=== PATIENT | male | born 1955 | race Caucasian/White ===

== ENCOUNTER 2017-11-05 15:54 | Observation (INO) ==
[2017-11-05 16:52] LABS: Basophils # 0.1 K/mcL (0.0-0.2); Basophils % 0.3 %; Eosinophils % 0.2 %; Hematocrit 47.3 % (37.5-50.1); Hemoglobin 15.4 g/dL (12.9-16.9); Immature Granulocytes % 0.8 % (0-4); Lymphocytes # 1.6 K/mcL (0.6-4.6); Lymphocytes % 10.5 %; Mean Corpuscular HGB Conc 32.6 g/dL (31.6-35.5); Mean Corpuscular Hemoglobin 29.6 pg (28.0-33.3); Monocytes # 0.9 K/mcL (0.0-1.3); Monocytes % 5.8 %; Neutrophils # 12.5 K/mcL (1.6-8.9); Platelet Count 284 K/mcL (140-400); Red Cell Distribution Width 14.6 % (11.5-14.5); Segmented Neutrophils % 82.4 %
[2017-11-05 17:09] LABS: BUN/Creatinine Ratio 25 (6-26); Blood Urea Nitrogen 22 mg/dL (8-23); Calcium 10.1 mg/dL (8.6-10.3); Carbon Dioxide 27 mEq/L (23-29); Chloride 97 mEq/L (98-107); Glucose 249 mg/dL (70-105); Osmolality,Calculated 288 (280-300); Potassium 5.6 mEq/L (3.5-5.1); Sodium 133 mEq/L (136-145); Troponin I < 0.03 ng/mL (< 0.04); eGFR For African Americans > 60 (> 60); eGFR For Non-African Americans > 60 (> 60)
[2017-11-05] MEDS ORDERED: Aspirin 325 MG TABLET PO ONE (20:01)
--- NOTE | 2017-11-05 20:03 | Emergency Department Note ---
Disposition Clinical Impression: Chest pain Qualifiers: Chest pain type: unspecified Qualified Code(s): R07.9 - Chest pain, unspecified Disposition: Admitted As Inpatient Condition: Good Referrals: Latrell Smith MD [Primary Care Provider] - Forms: ED Satisfaction Letter Time of Disposition: 21:08 General Adult HPI - General Chief complaint: ED Chest Pain Stated complaint: chest Pain Time Seen by Provider: 11/05/17 17:17 Source: patient Mode of arrival: ambulatory Limitations: no limitations Nursing Notes Reviewed: Yes Vital Signs Reviewed: Yes - History of Present Illness Pain Scale: 6 - Related Data Home Medications Medication Instructions Recorded Confirmed ALPRAZolam [Xanax 1 MG Tablet] 1 mg PO TID PRN 04/22/15 11/05/17 Albuterol Sulfate [Proair HFA] 2 puff IH Q4-6H PRN 04/22/15 11/05/17 Ergocalciferol (VITAMIN D2) 50,000 unit PO TUTH 04/22/15 11/05/17 [Drisdol] Levothyroxine [Synthroid] 75 mcg PO QAM 04/22/15 11/05/17 Oxycodone HCl/Acetaminophen 1 tab PO QID 04/22/15 11/05/17 [Percocet 10-325 mg Tablet] Oxygen 2 l NS AD 04/22/15 11/05/17 Potassium Chloride [K-Tab ER] 20 meq PO BID 11/17/15 11/05/17 Empagliflozin [Jardiance] 10 mg PO DAILY 06/25/17 11/05/17 ALPRAZolam [Xanax 1 MG Tablet] 2 mg PO HS 11/05/17 11/05/17 Aspirin Enteric Coated [Aspirin EC] 81 mg PO DAILY 11/05/17 11/05/17 Atorvastatin Calcium [Lipitor] 80 mg PO HS 11/05/17 11/05/17 Budesonide/Formoterol 160/4.5 2 puff IH BIDR 11/05/17 11/05/17 [Symbicort 160/4.5] Bumetanide 0.5 mg PO DAILY 11/05/17 11/05/17 Cetirizine HCl [Zyrtec] 10 mg PO DAILY PRN 11/05/17 11/05/17 Lisinopril [Zestril] 40 mg PO DAILY 11/05/17 11/05/17 Sitagliptin Phos/Metformin HCl 1 each PO BID 11/05/17 11/05/17 [Janumet Xr 50-1,000 mg Tablet] Subcutaneous Insulin Pump [T:Slim] 1 each MC AD 11/05/17 11/05/17 Allergies Allergy/AdvReac Type Severity Reaction Status Date / Time venom-honey bee Allergy Unknown SOB, Verified 11/05/17 15:59 [bee venom (honey bee)] swelling metformin AdvReac Unknown Loss of Verified 11/05/17 15:59 bowel control Past Medical History - Past Medical History Medical history: Reports: COPD, diabetes, hyperlipidemia, hypertension, myocardial infarction, thyroid disease Surgical history: Reports: orthopedic, other Psychiatric history: Reports: anxiety, depression - Social History Smoking Status: Never smoker Smokeless Tobacco Status: No Alcohol use: Reports: none Drug use: Reports: none Physical Exam - General Limitations: no limitations General appearance: alert, in no apparent distress Course Vital Signs Temperature 98.3 F 11/05/17 15:56 Pulse Rate 106 11/05/17 15:56 Respiratory Rate 20 11/05/17 15:56 Blood Pressure 175/97 11/05/17 15:56 O2 Sat by Pulse Oximetry 94 11/05/17 15:56 Temperature 98.3 F 11/05/17 15:56 Pulse Rate 82 11/05/17 20:46 Respiratory Rate 18 11/05/17 20:46 Blood Pressure 116/67 11/05/17 20:46 O2 Sat by Pulse Oximetry 98 11/05/17 20:46 Oxygen Delivery Oxygen Delivery Room Air Medical Decision Making - Lab Data Result diagrams: 11/05/17 15:55 11/05/17 15:55 Lab Results 11/05/17 11/05/17 11/05/17 Range/Units 15:55 15:55 15:55 WBC 15.2 H (4.3-11.1) K/mcL RBC 5.20 (4.19-5.50) M/mcL Hgb 15.4 (12.9-16.9) g/dL Hct 47.3 (37.5-50.1) % MCV 91.0 (83.0-100.0) fL MCH 29.6 (28.0-33.3) pg MCHC 32.6 (31.6-35.5) g/dL RDW 14.6 H (11.5-14.5) % Plt Count 284 (140-400) K/mcL MPV 11.0 (9.4-12.4) fL Immature Gran % 0.8 (0-4) % Seg Neutrophils % 82.4 % Lymphocytes % 10.5 % Monocytes % 5.8 % Eosinophils % 0.2 % Basophils % 0.3 % Neutrophils # 12.5 H (1.6-8.9) K/mcL Lymphocytes # 1.6 (0.6-4.6) K/mcL Monocytes # 0.9 (0.0-1.3) K/mcL Eosinophils # 0.0 (0.0-0.6) K/mcL Basophils # 0.1 (0.0-0.2) K/mcL PT (9.4-12.1) Seconds INR APTT (26.0-36.0) Seconds D-Dimer (0-500) ng/mLFEU Sodium 133 L (136-145) mEq/L Potassium 5.6 H (3.5-5.1) mEq/L Chloride 97 L (98-107) mEq/L Carbon Dioxide 27 (23-29) mEq/L BUN 22 (8-23) mg/dL Creatinine 0.87 (0.70-1.30) mg/dL Est GFR ( Amer) > 60 (> 60) Est GFR (Non-Af Amer) > 60 (> 60) BUN/Creatinine Ratio 25 (6-26) Glucose 249 H (70-105) mg/dL Calculated Osmolality 288 (280-300) Calcium 10.1 (8.6-10.3) mg/dL Troponin I < 0.03 (< 0.04) ng/mL B-Natriuretic Peptide 13 (Less than 100) pg/mL 11/05/17 11/05/17 Range/Units 18:51 20:12 WBC (4.3-11.1) K/mcL RBC (4.19-5.50) M/mcL Hgb (12.9-16.9) g/dL Hct (37.5-50.1) % MCV (83.0-100.0) fL MCH (28.0-33.3) pg MCHC (31.6-35.5) g/dL RDW (11.5-14.5) % Plt Count (140-400) K/mcL MPV (9.4-12.4) fL Immature Gran % (0-4) % Seg Neutrophils % % Lymphocytes % % Monocytes % % Eosinophils % % Basophils % % Neutrophils # (1.6-8.9) K/mcL Lymphocytes # (0.6-4.6) K/mcL Monocytes # (0.0-1.3) K/mcL Eosinophils # (0.0-0.6) K/mcL Basophils # (0.0-0.2) K/mcL PT 11.5 (9.4-12.1) Seconds INR 1.1 APTT 31.9 (26.0-36.0) Seconds D-Dimer 238 (0-500) ng/mLFEU Sodium (136-145) mEq/L Potassium (3.5-5.1) mEq/L Chloride (98-107) mEq/L Carbon Dioxide (23-29) mEq/L BUN (8-23) mg/dL Creatinine (0.70-1.30) mg/dL Est GFR ( Amer) (> 60) Est GFR (Non-Af Amer) (> 60) BUN/Creatinine Ratio (6-26) Glucose (70-105) mg/dL Calculated Osmolality (280-300) Calcium (8.6-10.3) mg/dL Troponin I (< 0.04) ng/mL B-Natriuretic Peptide (Less than 100) pg/mL Attestation Statement - Attestation Attestation: I, Rob De Luna DO, examined this patient [id number] and my medical decision-making was reviewed with Christophe Olson PGY-1, Resident Physician. I agree with the documented findings, disposition and treatment plan as described except to the extent set forth below. Please see my progress notes for details. 62-year-old male presents to the emergency room at 2 days with a substernal chest pain that comes and goes. Symptoms are worse with exertion. Denies any cardiac history at this time from what he knows. Patient denies any history of other symptoms. Currently denying chest pain shortness of breath headache vision changes nausea vomiting or diarrhea. Denies any fevers or chills. Patient has not had any trauma or injury. He does not take any new medications. Physical exam shows a well-appearing male in no apparent distress. He does have truncal obesity and does have a big abdomen. Denies any other specific medical history at this point. Patient will have screening EKG chest x-ray CBC chemistry troponin and BNP and d-dimer considering he was tachycardic initially. Patient's EKG does not show any acute signs of ST segment elevation abnormality or signs of myocardial infarction. This was reviewed and compared to an EKG collected on 10/25/17. Patient understands that her concern is for cardiac ischemia with no history of echocardiogram or stress test. Patient also understands will probably be recommending admission. He otherwise has no complaints or symptoms at this time. Patient is resting comfortable. See detailed documentation of the physical exam, medical intervention, medical decision-making and disposition in the resident physician' s note. No critical care applied to this patient's treatment course at this time. 2034 Patient is been stable here. Patient was discussed with the hospitals. Admission process will be completed. Patient is symptom-free at this time. No intervention required. Aspirin was given here in the emergency room.
--- NOTE | 2017-11-05 20:07 | Emergency Department Note ---
Disposition Clinical Impression: Chest pain Qualifiers: Chest pain type: unspecified Qualified Code(s): R07.9 - Chest pain, unspecified Disposition: Admitted As Inpatient Condition: Good Referrals: Latrell Smith MD [Primary Care Provider] - Forms: ED Satisfaction Letter Time of Disposition: 20:46 Chest Pain HPI - General Chief Complaint: ED Chest Pain Stated Complaint: chest Pain Time Seen by Provider: 11/05/17 17:17 Source: patient Mode of arrival: ambulatory Limitations: no limitations Vital Signs Reviewed: Yes Nursing Notes Reviewed: Yes - History of Present Illness HPI Narrative: Mr. Cesar Shaver is a 62 year old male who presents with 2 days of intermittent substernal chest pain radiating to the back. He says the chest pain is worse with exertion. He states he currently does not have chest pain, denies history of VA, has had LHC in past without stent placement. He denies fever/nausea/vomiting/diaphoresis. Severity scale (1-10): 6 - Related Data Home Medications Medication Instructions Recorded Confirmed ALPRAZolam [Xanax 1 MG Tablet] 1 mg PO TID PRN 04/22/15 11/05/17 Albuterol Sulfate [Proair HFA] 2 puff IH Q4-6H PRN 04/22/15 11/05/17 Ergocalciferol (VITAMIN D2) 50,000 unit PO TUTH 04/22/15 11/05/17 [Drisdol] Levothyroxine [Synthroid] 75 mcg PO QAM 04/22/15 11/05/17 Oxycodone HCl/Acetaminophen 1 tab PO QID 04/22/15 11/05/17 [Percocet 10-325 mg Tablet] Oxygen 2 l NS AD 04/22/15 11/05/17 Potassium Chloride [K-Tab ER] 20 meq PO BID 11/17/15 11/05/17 Empagliflozin [Jardiance] 10 mg PO DAILY 06/25/17 11/05/17 ALPRAZolam [Xanax 1 MG Tablet] 2 mg PO HS 11/05/17 11/05/17 Aspirin Enteric Coated [Aspirin EC] 81 mg PO DAILY 11/05/17 11/05/17 Atorvastatin Calcium [Lipitor] 80 mg PO HS 11/05/17 11/05/17 Budesonide/Formoterol 160/4.5 2 puff IH BIDR 11/05/17 11/05/17 [Symbicort 160/4.5] Bumetanide 0.5 mg PO DAILY 11/05/17 11/05/17 Cetirizine HCl [Zyrtec] 10 mg PO DAILY PRN 11/05/17 11/05/17 Lisinopril [Zestril] 40 mg PO DAILY 11/05/17 11/05/17 Sitagliptin Phos/Metformin HCl 1 each PO BID 11/05/17 11/05/17 [Janumet Xr 50-1,000 mg Tablet] Subcutaneous Insulin Pump [T:Slim] 1 each MC AD 11/05/17 11/05/17 Allergies Allergy/AdvReac Type Severity Reaction Status Date / Time venom-honey bee Allergy Unknown SOB, Verified 11/05/17 15:59 [bee venom (honey bee)] swelling metformin AdvReac Unknown Loss of Verified 11/05/17 15:59 bowel control Constitutional: Denies: fever, chills Eyes: Denies: vision change Cardiovascular: Reports: dyspnea on exertion Respiratory: Reports: wheezes. Denies: cough Gastrointestinal: Denies: abdominal pain Musculoskeletal: Denies: back pain Neurological: Denies: headache Psychiatric: Denies: anxiety, depression Endocrine: Denies: fatigue Chest Pain PMH - Past Medical History Medical history: Reports: COPD, diabetes, hyperlipidemia, hypertension, myocardial infarction, thyroid disease Surgical history: Reports: orthopedic, other Psychiatric history: Reports: anxiety, depression - Social History Smoking Status: Never smoker Alcohol use: Reports: none Drug use: Reports: none Physical Exam - General Limitations: no limitations General appearance: alert, in no apparent distress - Head Head exam: atraumatic, normocephalic - Eye Eye exam: Present: EOMI - ENT ENT exam: mucous membranes moist - Neck Neck exam: Present: full ROM - Chest Chest inspection: Present: symmetric chest wall rise - Respiratory Respiratory exam: Present: other (distant breath sounds bilaterally). Absent: respiratory distress - Cardiovascular Cardiovascular exam: Present: regular rate, normal rhythm. Absent: systolic murmur, diastolic murmur, rubs, gallop, JVD - Abdominal Exam Abdominal exam: Present: soft, Non-Tender, other (central obesity). Absent: distention - Extremities Exam Extremities exam: Present: normal capillary refill. Absent: pedal edema, joint swelling - Neurological Exam Neurological exam: Present: alert, oriented X3 - Psychiatric Psychiatric exam: Present: normal affect, normal mood - Skin Skin exam: Present: warm. Absent: cyanosis, diaphoresis, pallor Course Course Narrative: Patient is non-diaphoretic, currently denies chest pain that he previously had. He is saturating at his baseline low 90s. He has a negative troponin, CXR shows no acute cardiopulmonary process, ECG shows no ischemic changes, d-dimer is negative. Despite negative lab work today, his ASCVD 10 is 33%, Heart score of 4 for history and risk factors (DM, HTN, Cholesterol). Gave patient ASA 325mg. Discussed patient's workup with admitting hospitialist who agrees to evaluate patient for ACS. Patient agrees with plan for admission. Vital Signs Temperature 98.3 F 11/05/17 15:56 Pulse Rate 106 11/05/17 15:56 Respiratory Rate 20 11/05/17 15:56 Blood Pressure 175/97 11/05/17 15:56 O2 Sat by Pulse Oximetry 94 11/05/17 15:56 Temperature 98.3 F 11/05/17 15:56 Pulse Rate 82 11/05/17 20:46 Respiratory Rate 18 11/05/17 20:46 Blood Pressure 116/67 11/05/17 20:46 O2 Sat by Pulse Oximetry 98 11/05/17 20:46 Oxygen Delivery Oxygen Delivery Room Air Chest Pain - Medical Records Medical records reviewed: Yes I reviewed the patient's medical records. - Lab Data Lab results reviewed: Yes I reviewed the patient's lab results. Result diagrams: 11/05/17 15:55 11/05/17 15:55 Lab Results 11/05/17 11/05/17 11/05/17 Range/Units 15:55 15:55 15:55 WBC 15.2 H (4.3-11.1) K/mcL RBC 5.20 (4.19-5.50) M/mcL Hgb 15.4 (12.9-16.9) g/dL Hct 47.3 (37.5-50.1) % MCV 91.0 (83.0-100.0) fL MCH 29.6 (28.0-33.3) pg MCHC 32.6 (31.6-35.5) g/dL RDW 14.6 H (11.5-14.5) % Plt Count 284 (140-400) K/mcL MPV 11.0 (9.4-12.4) fL Immature Gran % 0.8 (0-4) % Seg Neutrophils % 82.4 % Lymphocytes % 10.5 % Monocytes % 5.8 % Eosinophils % 0.2 % Basophils % 0.3 % Neutrophils # 12.5 H (1.6-8.9) K/mcL Lymphocytes # 1.6 (0.6-4.6) K/mcL Monocytes # 0.9 (0.0-1.3) K/mcL Eosinophils # 0.0 (0.0-0.6) K/mcL Basophils # 0.1 (0.0-0.2) K/mcL PT (9.4-12.1) Seconds INR APTT (26.0-36.0) Seconds D-Dimer (0-500) ng/mLFEU Sodium 133 L (136-145) mEq/L Potassium 5.6 H (3.5-5.1) mEq/L Chloride 97 L (98-107) mEq/L Carbon Dioxide 27 (23-29) mEq/L BUN 22 (8-23) mg/dL Creatinine 0.87 (0.70-1.30) mg/dL Est GFR ( Amer) > 60 (> 60) Est GFR (Non-Af Amer) > 60 (> 60) BUN/Creatinine Ratio 25 (6-26) Glucose 249 H (70-105) mg/dL Calculated Osmolality 288 (280-300) Calcium 10.1 (8.6-10.3) mg/dL Troponin I < 0.03 (< 0.04) ng/mL B-Natriuretic Peptide 13 (Less than 100) pg/mL 11/05/17 11/05/17 Range/Units 18:51 20:12 WBC (4.3-11.1) K/mcL RBC (4.19-5.50) M/mcL Hgb (12.9-16.9) g/dL Hct (37.5-50.1) % MCV (83.0-100.0) fL MCH (28.0-33.3) pg MCHC (31.6-35.5) g/dL RDW (11.5-14.5) % Plt Count (140-400) K/mcL MPV (9.4-12.4) fL Immature Gran % (0-4) % Seg Neutrophils % % Lymphocytes % % Monocytes % % Eosinophils % % Basophils % % Neutrophils # (1.6-8.9) K/mcL Lymphocytes # (0.6-4.6) K/mcL Monocytes # (0.0-1.3) K/mcL Eosinophils # (0.0-0.6) K/mcL Basophils # (0.0-0.2) K/mcL PT 11.5 (9.4-12.1) Seconds INR 1.1 APTT 31.9 (26.0-36.0) Seconds D-Dimer 238 (0-500) ng/mLFEU Sodium (136-145) mEq/L Potassium (3.5-5.1) mEq/L Chloride (98-107) mEq/L Carbon Dioxide (23-29) mEq/L BUN (8-23) mg/dL Creatinine (0.70-1.30) mg/dL Est GFR ( Amer) (> 60) Est GFR (Non-Af Amer) (> 60) BUN/Creatinine Ratio (6-26) Glucose (70-105) mg/dL Calculated Osmolality (280-300) Calcium (8.6-10.3) mg/dL Troponin I (< 0.04) ng/mL B-Natriuretic Peptide (Less than 100) pg/mL - Radiology Data Radiology results reviewed: Yes I reviewed the patient's radiology results. Chest X-Ray 11/05/17 15:55 IMPRESSION: No acute cardiopulmonary process identified. D/ / Israel Sanchez MD / Israel Sanchez MD Interpreting Provider: Israel Sanchez MD - EKG Data EKG attestation: Yes I reviewed and interpreted this EKG. EKG results narrative: ECG obtained 1558, HR tachycardic at 106, normal axis, no st ischemic changes, normal r wave progression. Attestation Statement - Attestation Attestation: I, Rob De Luna DO, examined this patient [id number] and my medical decision-making was reviewed with Christophe Olson PGY-1, Resident Physician. I agree with the documented findings, disposition and treatment plan as described except to the extent set forth below. Please see my progress notes for details.
[2017-11-05 20:27] LABS: INR 1.1; Prothrombin Time 11.5 Seconds (9.4-12.1)
[2017-11-05 20:29] LABS: Activated Partial Thrombo Time 31.9 Seconds (26.0-36.0)
[2017-11-05] MEDS ORDERED: Acetaminophen 325 MG TABLET PO PRN (21:47)
[2017-11-05] MEDS ORDERED: Naloxone 0.4 MG/ML INJ IVP PRN (21:47)
[2017-11-05] MEDS ORDERED: ALPRAZolam 1 MG TABLET PO PRN (21:48)
[2017-11-05] MEDS ORDERED: Ipratropium/Albuterol Neb 3 ML IH PRN (21:54)
--- NOTE | 2017-11-05 22:00 | Internal Med History&Physical ---
Date of Encounter: 11/05/17 Time of Encounter: 21:58 Assessment and Plan (1) Chest pain Current visit: Yes Status: Acute Intermittent, progressive. EKG reviewed independently-sinus tachycardia at 106 bpm. Continue telemetry monitoring, trend troponins. Nuclear stress test in a.m. Echocardiogram in 2016 showed preserved ejection fraction, mild left ventricular diastolic dysfunction, Mild to moderately dilated left atrium. Continue aspirin and statin. Check lipid profile. Qualifiers: Chest pain type: unspecified Qualified Code(s): R07.9 - Chest pain, unspecified (2) Hyperkalemia Current visit: Yes Status: Acute Likely due to CARLEY inhibitor and potassium supplements. Hold these medications for now. Will give 1 dose of Kayexalate, monitor potassium closely. Continue telemetry monitoring. (3) COPD (chronic obstructive pulmonary disease) Current visit: Yes Status: Chronic Not in acute exacerbation. Recently completed steroid taper. Continue when necessary bronchodilators nebulization, supplemental oxygen, inhaled corticosteroids. Qualifiers: COPD type: chronic bronchitis Chronic bronchitis type: simple Qualified Code(s): J41.0 - Simple chronic bronchitis (4) Chronic respiratory failure Current visit: Yes Status: Chronic on home oxygen due to underlying Copd: Qualifiers: Respiratory failure complication: hypoxia Qualified Code(s): J96.11 - Chronic respiratory failure with hypoxia (5) Diabetes mellitus Current visit: Yes Status: Chronic Blood sugar noted to be elevated: Hols insulin pump for now; Accucheck blood glucose monitoring with basal and sliding scale insulin as needed: check HbA1C; DIABETIC DIET; Qualifiers: Diabetes mellitus type: type 2 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: without skilled nursing use Diabetes mellitus complication status: with hyperglycemia Qualified Code(s): E11.65 - Type 2 diabetes mellitus with hyperglycemia (6) Essential hypertension Current visit: Yes Status: Chronic (7) Hyperlipidemia Current visit: Yes Status: Chronic Qualifiers: Hyperlipidemia type: unspecified Qualified Code(s): E78.5 - Hyperlipidemia , unspecified (8) Obstructive sleep apnea Current visit: Yes Status: Chronic Non-compliant with BiPAP due to "pressure being too high"; encouraged to be compliant and to f/up with Pulmonology; Internal Medicine - H&P: HPI Chief complaint: Chest pain Admitted From: Emergency Dept Plans for Post Hospital Care: Home History of present illness: Mr. Shaver is a 62 year old male with history of hypertension, diabetes, COPD, who presents with complaints of chest pain. Patient reports gradually progressive, intermittent retrosternal chest pain for at least the last 10 days , associated with exertional dyspnea, dry cough. He presented to the emergency room last week with similar complaints, was told that he has had a heart attack and discharged home with cardiology follow-up, which is next month. Patient also followed with his rn bariatric about 10 days ago, was sent home with oral prednisone taper and Symbicort. Patient is supposed to be on BiPAP at home, which he has not used in several years due to ill fitting mask, he recently had new mask and titration done, but he still cannot use it due to high pressures. Past Med Surg Social Fam HX - Past Medical History Medical history: arthritis, COPD, diabetes, hyperlipidemia, hypertension, myocardial infarction, thyroid disease Psychiatric history: anxiety, depression - Past Surgical History Surgical History: orthopedic, other - Social History Smoking Status: Never smoker Smokeless Tobacco Status: No Alcohol use: none Drug use: none Occupational status: disabled Current living situation: Home, With Family Activity Level: Independent ambulation Recent Out of Country Travel Within the Last 8 Weeks: No Exposure or Possible Exposure to Illness During Travel: No - Family History Mother Hx Family Endocrine Disorder: Yes (Diabetes) Father Hx Family Cancer: Yes (Prostate, head and neck) Internal Medicine - H&P: Meds ALPRAZolam [Xanax 1 MG Tablet] 1 mg PO TID PRN 04/22/15 [History] Albuterol Sulfate [Proair HFA] 2 puff IH Q4-6H PRN 04/22/15 [History] Ergocalciferol (VITAMIN D2) [Drisdol] 50,000 unit PO TUTH 04/22/15 [History] Levothyroxine [Synthroid] 75 mcg PO QAM 04/22/15 [History] Oxycodone HCl/Acetaminophen [Percocet 10-325 mg Tablet] 1 tab PO QID 04/22/15 [ History] Oxygen 2 l NS AD 04/22/15 [History] Potassium Chloride [K-Tab ER] 20 meq PO BID 11/17/15 [History] Empagliflozin [Jardiance] 10 mg PO DAILY 06/25/17 [History] ALPRAZolam [Xanax 1 MG Tablet] 2 mg PO HS 11/05/17 [History] Aspirin Enteric Coated [Aspirin EC] 81 mg PO DAILY 11/05/17 [History] Atorvastatin Calcium [Lipitor] 80 mg PO HS 11/05/17 [History] Budesonide/Formoterol 160/4.5 [Symbicort 160/4.5] 2 puff IH BIDR 11/05/17 [ History] Bumetanide 0.5 mg PO DAILY 11/05/17 [History] Cetirizine HCl [Zyrtec] 10 mg PO DAILY PRN 11/05/17 [History] Lisinopril [Zestril] 40 mg PO DAILY 11/05/17 [History] Sitagliptin Phos/Metformin HCl [Janumet Xr 50-1,000 mg Tablet] 1 each PO BID [History] Subcutaneous Insulin Pump [T:Slim] 1 each MC AD 11/05/17 [History] 3 Allergy/AdvReac Type Severity Reaction Status Date / Time venom-honey bee Allergy Unknown SOB, Verified 11/05/17 15:59 [bee venom (honey bee)] swelling metformin AdvReac Unknown Loss of Verified 11/05/17 15:59 bowel control All Systems PM: A 10-system review of systems was performed and is negative for pertinent findings except as documented above in the HPI. - Constitutional Constitutional: no chills, no fever(s), no night sweats - EENT Eyes: no change in vision, no discharge, no pain, no photophobia Ears: no ear discharge, no ear pain, no tinnitus Nose, mouth and throat: no dysphagia, no nasal discharge, no neck pain, no sore throat - Cardiovascular Cardiovascular ROS IM: chest pain, dyspnea, dyspnea on exertion, edema - Respiratory Respiratory: cough, dyspnea on exertion, chest congestion, no dyspnea, no wheezing, no excessive phlegm production - Gastrointestinal Gastrointestinal: no abdominal pain, no diarrhea, no hematemesis, no hematochezia, no melena, no nausea, no vomiting - Musculoskeletal Musculoskeletal ROS IM: no numbness, no tingling - Integumentary Integumentary IM: no rash, no unusual bruising - Neurological Neurological ROS: no confusion, no convulsions, no focal weakness, no numbness, no tingling, no tremor(s) - Hematologic/Lymphatic Hematologic/Lymphatic: no easy bruising - Constitutional Vitals: Temp Pulse Resp BP Pulse Ox 98.3 F 82 18 116/67 98 11/05/17 15:56 11/05/17 20:46 11/05/17 20:46 11/05/17 20:46 11/05/17 20:46 General appearance: Present: A&O X 3, morbidly obese, answers questions appropriately - Respiratory Respiratory exam: Present: CTAB. Absent: accessory muscle use, rales, rhonchi, wheezes - Cardiovascular Cardiovascular exam: Present: RRR, +S1, +S2. Absent: diastolic murmur, gallop, rubs, systolic murmur - GI/Abdominal GI/Abdominal exam: Present: normal bowel sounds, soft (obese), no peritoneal signs. Absent: distended, tenderness - Extremities Exam Extremities exam: Present: full ROM, pedal edema (2+ pedal edema B/L), warm, radial pulses palpable and symmetrical. Absent: calf tenderness, cyanotic - Neurological Exam Neurological exam: Present: CN II-XII intact, oriented X3, no focal deficits. Absent: pronater drift, facial droop, speech deficit - Skin Skin exam: Present: dry, intact Internal Med - H&P Results - Labs CBC & Chem 7: 11/05/17 15:55 11/05/17 15:55 Labs: Short CBC 11/05/17 Range/Units 15:55 WBC 15.2 H (4.3-11.1) K/mcL Hgb 15.4 (12.9-16.9) g/dL Hct 47.3 (37.5-50.1) % Plt Count 284 (140-400) K/mcL Neutrophils # 12.5 H (1.6-8.9) K/mcL BMP 11/05/17 15:55 Sodium 133 L Potassium 5.6 H Chloride 97 L Carbon Dioxide 27 BUN 22 Creatinine 0.87 Glucose 249 H Calcium 10.1 Cardiac Enzymes 11/05/17 Range/Units 15:55 Troponin I < 0.03 (< 0.04) ng/mL - Impressions ITS Impressions Chest X-Ray 11/05/17 15:55 IMPRESSION: No acute cardiopulmonary process identified. D/ / Israel Sanchez MD / Israel Sanchez MD Interpreting Provider: Israel Sanchez MD
[2017-11-05] MEDS ORDERED: *HR* Dextrose 50 % in Water (Syg) 50 ML SYRINGE IVP PRN (22:15)
[2017-11-05] MEDS ORDERED: D5% in Water 1,000 ML IVC PRN (22:15)
[2017-11-05] MEDS ORDERED: Dextrose Gel 15 GM/37.5 ML TUBE PO PRN ×2 (22:15)
[2017-11-05 23:11] LABS: Estimated Average Glucose 177 mg/dl; Hemoglobin A1C 7.8 %
[2017-11-06] MEDS: Budesonide/Formoterol 160/4.5 MDI IH SCH ×3 (00:01→19:54)
[2017-11-06] MEDS: Insulin DETEMIR 100 UNIT/ML X5UNITS SQ SCH ×2 (01:05→23:18)
[2017-11-06] MEDS: *HR* OxyCODONE/APAP 10/325 TABLET PO PRN (02:00)
[2017-11-06] MEDS: Insulin LISPRO 300 UNITS/3 ML VIAL SQ SCH ×5 (02:01→23:51)
[2017-11-06] MEDS ORDERED: Regadenoson 0.4 MG/5 ML SYRINGE IVP ONE (05:47)
[2017-11-06 07:24] LABS: Basophils # 0.1 K/mcL (0.0-0.2); Basophils % 0.6 %; Eosinophils # 0.2 K/mcL (0.0-0.6); Eosinophils % 1.9 %; Hematocrit 46.8 % (37.5-50.1); Hemoglobin 15.3 g/dL (12.9-16.9); Immature Granulocytes % 1.1 % (0-4); Lymphocytes # 3.4 K/mcL (0.6-4.6); Lymphocytes % 26.6 %; Mean Corpuscular HGB Conc 32.7 g/dL (31.6-35.5); Mean Corpuscular Hemoglobin 29.8 pg (28.0-33.3); Mean Corpuscular Volume 91.1 fL (83.0-100.0); Mean Platelet Volume 10.7 fL (9.4-12.4); Monocytes # 1.2 K/mcL (0.0-1.3); Monocytes % 9.1 %; Neutrophils # 7.7 K/mcL (1.6-8.9); Platelet Count 276 K/mcL (140-400); Red Blood Count 5.14 M/mcL (4.19-5.50); Red Cell Distribution Width 14.6 % (11.5-14.5); Segmented Neutrophils % 60.7 %
[2017-11-06 07:33] LABS: Troponin I < 0.03 ng/mL (< 0.04)
[2017-11-06 08:33] LABS: Potassium 3.9 mEq/L (3.5-5.1)
[2017-11-06 08:35] LABS: BUN/Creatinine Ratio 23 (6-26); Blood Urea Nitrogen 17 mg/dL (8-23); Calcium 9.5 mg/dL (8.6-10.3); Carbon Dioxide 28 mEq/L (23-29); Chloride 99 mEq/L (98-107); Chol/HDL Ratio 4.7 (0-4.9); Cholesterol 237 mg/dL (< 200); Glucose 83 mg/dL (70-105); HDL Cholesterol 50 mg/dL (40-59); LDL Cholesterol,Calculated 109 mg/dL (0-99); Osmolality,Calculated 283 (280-300); Sodium 136 mEq/L (136-145); Triglycerides 391 mg/dL (< 150); eGFR For African Americans > 60 (> 60); eGFR For Non-African Americans > 60 (> 60)
[2017-11-06] MEDS: *HR* Enoxaparin 40 MG/0.4 ML SYRINGE SQ SCH (11:36)
[2017-11-06] MEDS: Bumetanide 1 MG TABLET PO SCH (11:37)
[2017-11-06] MEDS: Aspirin Enteric Coated 81 MG Tablet PO SCH (11:37)
--- NOTE | 2017-11-06 16:47 | Internal Med Progress Note ---
Date of Encounter: 11/06/17 Time of Encounter: 16:45 - Assessment and plan (1) Chest pain Current Visit: Yes Status: Acute Assessment and plan: Intermittent, progressive. Serial troponins negative, EKG with sinus tachycardia at 106 bpm. echo, stress test pending. Continue telemetry monitoring. Cont ASA Qualifiers: Chest pain type: unspecified Qualified Code(s): R07.9 - Chest pain, unspecified (2) Hyperkalemia Current Visit: Yes Status: Acute Assessment and plan: Likely due to CARLEY inhibitor and potassium supplements. Hold these medications for now. K normalized with Kayexalate. Monitor repeat CMP. Continue telemetry monitoring. (3) COPD (chronic obstructive pulmonary disease) Current Visit: Yes Status: Chronic Assessment and plan: Not in acute exacerbation. Recently completed steroid taper. Continue when necessary bronchodilators nebulization, supplemental oxygen, inhaled corticosteroids. Qualifiers: COPD type: chronic bronchitis Chronic bronchitis type: simple Qualified Code(s): J41.0 - Simple chronic bronchitis (4) Diabetes mellitus Current Visit: Yes Status: Chronic Assessment and plan: per hx. Hgb A1c 7.8%. Uses insulin pump at home. Hold home insulin pump, SSI. Monitor blood sugar and titrate PRN Qualifiers: Diabetes mellitus type: type 2 Diabetes mellitus rodent exterminator insulin use: without rodent exterminator use Diabetes mellitus complication status: with hyperglycemia Qualified Code(s): E11.65 - Type 2 diabetes mellitus with hyperglycemia (5) Essential hypertension Current Visit: Yes Status: Chronic Assessment and plan: per hx. BP and told. Continue home BP medication. Monitor BP and titrate PRN (6) Obstructive sleep apnea Current Visit: Yes Status: Chronic Assessment and plan: Non-compliant with BiPAP due to "pressure being too high"; encouraged to be compliant and to f/up with Pulmonology (7) DVT prophylaxis Current Visit: Yes Status: Acute Assessment and plan: lovenox - Subjective Interval history: Seen and examined at bedside. Patient is new to me, information obtained from chart review and patient report. Sitting up in chair bedside, eating lunch. Still reports intermittent left-sided chest pain described as dull. Does not radiate. No alleviating or aggravating factors. Says chest pain waxes and wanes. No shortness of breath. - Constitutional Vitals: Temp Pulse Resp BP Pulse Ox 97.6 F 81 18 142/88 93 11/06/17 11:03 11/06/17 11:03 11/06/17 11:03 11/06/17 11:03 11/06/17 11:03 General appearance: Present: A&O X 3, morbidly obese, answers questions appropriately - Head Head exam: Present: atraumatic, normocephalic - Eye Eye exam: Present: PERRL, conjuntiva pink, sclera anicteric Pupils: Present: PERRL - Neck Neck exam general surgery: Present: supple, trachea midline. Absent: lymphadenopathy - Respiratory Respiratory exam: Present: CTAB. Absent: accessory muscle use, rales, rhonchi, wheezes - Cardiovascular Cardiovascular exam: Present: RRR, +S1, +S2. Absent: diastolic murmur, gallop, rubs, systolic murmur - GI/Abdominal GI/Abdominal exam: Present: normal bowel sounds, soft, no peritoneal signs. Absent: distended, tenderness - Extremities Exam Extremities exam: Present: warm, radial pulses palpable and symmetrical. Absent : calf tenderness, cyanotic, pedal edema - Neurological Exam Neurological exam: Present: CN II-XII intact, oriented X3, no focal deficits. Absent: pronater drift, facial droop, speech deficit - Skin Skin exam: Present: dry, intact Internal Medicine: Result - Labs CBC & Chem 7: 11/06/17 06:46 11/06/17 06:46 Labs: Short CBC 11/06/17 Range/Units 06:46 WBC 12.7 H (4.3-11.1) K/mcL Hgb 15.3 (12.9-16.9) g/dL Hct 46.8 (37.5-50.1) % Plt Count 276 (140-400) K/mcL Neutrophils # 7.7 (1.6-8.9) K/mcL BMP 11/06/17 06:46 Sodium 136 Potassium 3.9 D Chloride 99 Carbon Dioxide 28 BUN 17 Creatinine 0.73 Glucose 83 Calcium 9.5 Cardiac Enzymes 11/06/17 11/06/17 Range/Units 06:46 13:47 Troponin I < 0.03 < 0.03 (< 0.04) ng/mL - ABG Interpretation ABG results: PT/INR, D-dimer PT 11.5 Seconds (9.4-12.1) 11/05/17 20:12 D-Dimer 238 ng/mLFEU (0-500) 11/05/17 18:51 Consult Discharge Plan - Plan Referrals: Latrell Smith MD [Primary Care Provider] -
[2017-11-06] MEDS ORDERED: Perflutren Lipid Microsphere 1.3 ML in 0.9 % Sodium Chloride 8.7 ML IVP ONE (21:21)
[2017-11-06] MEDS: ALPRAZolam 1 MG TABLET PO SCH (22:24)
[2017-11-07] MEDS: Insulin LISPRO 300 UNITS/3 ML VIAL SQ SCH ×3 (04:57→16:38)
[2017-11-07 06:00] LABS: Hematocrit 44.7 % (37.5-50.1); Hemoglobin 14.7 g/dL (12.9-16.9); Mean Corpuscular HGB Conc 32.9 g/dL (31.6-35.5); Mean Corpuscular Hemoglobin 30.1 pg (28.0-33.3); Mean Corpuscular Volume 91.4 fL (83.0-100.0); Mean Platelet Volume 10.8 fL (9.4-12.4); Platelet Count 239 K/mcL (140-400); Red Blood Count 4.89 M/mcL (4.19-5.50); Red Cell Distribution Width 14.1 % (11.5-14.5)
[2017-11-07 06:24] LABS: BUN/Creatinine Ratio 26 (6-26); Blood Urea Nitrogen 22 mg/dL (8-23); Calcium 9.2 mg/dL (8.6-10.3); Carbon Dioxide 30 mEq/L (23-29); Chloride 97 mEq/L (98-107); Glucose 71 mg/dL (70-105); Osmolality,Calculated 284 (280-300); Potassium 3.6 mEq/L (3.5-5.1); Sodium 136 mEq/L (136-145); eGFR For African Americans > 60 (> 60); eGFR For Non-African Americans > 60 (> 60)
--- NOTE | 2017-11-07 06:34 | Electrocardiograph Report ---
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
[2017-11-07] MEDS: Bumetanide 1 MG TABLET PO SCH (08:11)
[2017-11-07] MEDS: *HR* Enoxaparin 40 MG/0.4 ML SYRINGE SQ SCH (08:12)
[2017-11-07] MEDS: Aspirin Enteric Coated 81 MG Tablet PO SCH (08:12)
[2017-11-07] MEDS: Budesonide/Formoterol 160/4.5 MDI IH SCH ×2 (10:47→20:54)
--- NOTE | 2017-11-07 13:30 | Cardiology Consult Note ---
Date of Encounter: 11/07/17 Time of Encounter: 13:24 Assessment and Plan (1) Abnormal stress test Current Visit: Yes Status: Acute Presented with worsening chest pain, fatigue, and dyspnea over the past 2 weeks. Troponin negative. Underwent stress test--shows medium sized, moderate intensity stress perfusion defect involving mid-distal inferolateral wall and apical lateral gross representing reversible ischemia. Gated EF 47%. TID noted. TTE resulted--EF 55-60%, mild LVDD. Given symptoms and abnormal stress test, recommend LHC to further evaluate. R/B/ A discussed. Pt agrees to proceed. Risk factors for CAD include HTN, HLD, DM, Obesity. Continue ASA and Statin. Start BB. Of note, pt reports LHC 8-10 years ago without intervention. (2) Chest pain Current Visit: Yes Status: Acute As above, now with abnormal stress test. Plan for LHC. Qualifiers: Chest pain type: unspecified Qualified Code(s): R07.9 - Chest pain, unspecified (3) Essential hypertension Current Visit: Yes Status: Chronic Hypertensive. Continue current meds and will add Lopressor 25mg BID. Discussion w patient/family: The assessment and plan as outlined above was discussed with the patient and/or family members who expressed understanding and agreement. All questions were answered. Thank you for involving us in the care of your patient. Please call with any questions. I will discuss all the above with Dr. Lange and make changes as necessary. History of Present Illness Consult date: 11/07/17 Requesting physician: Zaira Jimenes Consult reason: abnormal stress test Chief complaint: chest pain History of present illness: Mr. Shaver is a 62 year old male with PMH of hypertension, diabetes, COPD on home O2, NATHALY noncompliant with BiPAP, who presented to ED with complaints of chest pain. Reports chest pain that started approximately 2 weeks ago, left sided, achy, worse with exertion. Associated dyspnea and report significant worsening fatigue over the past 2 weeks. He saw his team lead about 10 days ago, was sent home with oral prednisone taper and Symbicort. Troponins negative. Stress test completed--shows medium sized, moderate intensity stress perfusion defect involving mid-distal inferolateral wall and apical lateral gross representing reversible ischemia. Gated EF 47%. TID noted. TTE resulted-- EF 55-60%, mild LVDD. Cardiology consulted for further recommendations. Pt reports having a LHC 8-10 years ago without intervention. Past Med Surg Social Fam HX - Past Medical History Medical history: arthritis, COPD, diabetes, hyperlipidemia, hypertension, myocardial infarction, thyroid disease Psychiatric history: anxiety, depression - Past Surgical History Surgical History: orthopedic, other - Social History Smoking Status: Never smoker Smokeless Tobacco Status: No Alcohol use: none Drug use: none - Family History Mother Hx Family Endocrine Disorder: Yes (Diabetes) Father Hx Family Cancer: Yes (Prostate, head and neck) Medications and Allergies ALPRAZolam [Xanax 1 MG Tablet] 1 mg PO TID PRN 04/22/15 [History] Albuterol Sulfate [Proair HFA] 2 puff IH Q4-6H PRN 04/22/15 [History] Ergocalciferol (VITAMIN D2) [Drisdol] 50,000 unit PO TUTH 04/22/15 [History] Levothyroxine [Synthroid] 75 mcg PO QAM 04/22/15 [History] Oxycodone HCl/Acetaminophen [Percocet 10-325 mg Tablet] 1 tab PO QID 04/22/15 [ History] Oxygen 2 l NS AD 04/22/15 [History] Potassium Chloride [K-Tab ER] 20 meq PO BID 11/17/15 [History] Empagliflozin [Jardiance] 10 mg PO DAILY 06/25/17 [History] ALPRAZolam [Xanax 1 MG Tablet] 2 mg PO HS 11/05/17 [History] Aspirin Enteric Coated [Aspirin EC] 81 mg PO DAILY 11/05/17 [History] Atorvastatin Calcium [Lipitor] 80 mg PO HS 11/05/17 [History] Budesonide/Formoterol 160/4.5 [Symbicort 160/4.5] 2 puff IH BIDR 11/05/17 [ History] Bumetanide 0.5 mg PO DAILY 11/05/17 [History] Cetirizine HCl [Zyrtec] 10 mg PO DAILY PRN 11/05/17 [History] Lisinopril [Zestril] 40 mg PO DAILY 11/05/17 [History] Sitagliptin Phos/Metformin HCl [Janumet Xr 50-1,000 mg Tablet] 1 each PO BID [History] Subcutaneous Insulin Pump [T:Slim] 1 each MC AD 11/05/17 [History] 3 Allergy/AdvReac Type Severity Reaction Status Date / Time venom-honey bee Allergy Unknown SOB, Verified 11/05/17 15:59 [bee venom (honey bee)] swelling metformin AdvReac Unknown Loss of Verified 11/05/17 15:59 bowel control All Systems Review: The remainder of the systems were reviewed and are negative - Constitutional Constitutional: fatigue - Cardiovascular Cardiovascular: as per HPI, chest pain at rest, chest pain with exertion, dyspnea on exertion - Respiratory Respiratory: dyspnea Physical Examination Vital Signs, Last 4 Hours Temp Pulse Resp BP Pulse Ox 11/07/17 11:26 98.0 F 83 16 171/83 96 11/07/17 10:49 16 97 Vital Signs Temp Pulse Resp BP Pulse Ox 11/07/17 11:26 98.0 F 83 16 171/83 96 11/07/17 10:49 16 97 11/07/17 08:03 97.7 F 73 16 162/90 97 11/07/17 03:03 97.9 F 80 16 142/77 97 11/06/17 22:00 98.0 F 95 16 155/68 96 11/06/17 19:54 17 96 11/06/17 18:58 98.9 F 90 16 136/80 94 11/06/17 15:08 97.5 F L 88 19 141/74 92 Intake and Output 11/06/17 11/07/17 11/07/17 23:59 07:59 15:59 Other: Meal NPO Blood Glucose* 193 92 121 General: Conversant, No Apparent Distress HEENT: Atraumatic, Normocephaly, Mucus Membranes Moist Neck: No JVD, Normal carotid pulses Cardiac: Reg Rate and Rhythm, Normal S1 and S2, No Murmur Lungs: Normal Breath Sounds, No Wheeze, Rales, Rhonchi Neuro: Alert and responsive, No focal deficits noted Abdomen: Soft, Non-Tender Skin: No rashes noted on visualized skin Musculoskeletal: No Chest Wall Tenderness Extremities: No Clubbing, No Cyanosis, No Edema, Normal Pulses Results 11/07/17 04:24 11/07/17 04:24 Lab Results 11/06/17 11/07/17 11/07/17 13:47 04:24 04:24 WBC 10.9 Hgb 14.7 Hct 44.7 Plt Count 239 Sodium 136 Potassium 3.6 Chloride 97 L Carbon Dioxide 30 H BUN 22 Creatinine 0.84 Glucose 71 Calcium 9.2 Troponin I < 0.03 Short CBC 11/07/17 Range/Units 04:24 WBC 10.9 (4.3-11.1) K/mcL Hgb 14.7 (12.9-16.9) g/dL Hct 44.7 (37.5-50.1) % Plt Count 239 (140-400) K/mcL BMP 11/07/17 Range/Units 04:24 Sodium 136 (136-145) mEq/L Potassium 3.6 (3.5-5.1) mEq/L Chloride 97 L (98-107) mEq/L Carbon Dioxide 30 H (23-29) mEq/L BUN 22 (8-23) mg/dL Creatinine 0.84 (0.70-1.30) mg/dL Glucose 71 (70-105) mg/dL Calcium 9.2 (8.6-10.3) mg/dL Cardiac Enzymes 11/06/17 Range/Units 13:47 Troponin I < 0.03 (< 0.04) ng/mL Impressions Echocardiogram 11/06/17 16:50 Impressions: LVEF 55-60%. Definity contrast was used. Mild left ventricular diastolic dysfunction. Normal right ventricular structure and function. Sclerotic aortic valve. Lack of TR signal to estimate RVSP. Left Ventricular Wall Motion: Rest Echo Findings All wall segments showed normal motion. Findings: Study Quality * Technically sub-optimal due to body habitus. ECG Findings * Normal sinus rhythm. Left Ventricle * LVEF 55-60%. * Mild left ventricular diastolic dysfunction. * There is no LV thrombus. * Definity echo contrast was used. Right Ventricle * Normal right ventricular structure and function. Left Atrium * Normal left atrial size. Right Atrium * Normal right atrial size. Mitral Valve * Normal mitral valve structure. * No mitral stenosis. * No mitral regurgitation. Aortic Valve * No aortic regurgitation. * Leaflet morphology not well visualized. * No aortic stenosis. * Sclerotic aortic valve. Tricuspid Valve * Tricuspid valve not well visualized. * No tricuspid regurgitation. Pulmonic Valve * Pulmonic valve is not well visualized. * No pulmonic stenosis. * No pulmonic regurgitation. Pulmonary Artery * Pulmonary artery not well visualized. Aorta * Normally sized aortic root. Pericardium * There is no pericardial effusion present. Interatrial Septum * No evidence of PFO by color Doppler. IVC * The IVC is not well evaluated. Active Medications Acetaminophen (Tylenol) 650 mg PO Q6HR PRN PRN Reason: Mild Pain/Fever Stop: 05/07/18 21:48 Albuterol/Ipratropium (Duoneb) 3 ml IH [id number] PRN PRN Reason: Shortness Of Breath/Wheezing Stop: 05/07/18 21:55 Alprazolam (Xanax) 2 mg PO HS SAL PRN Reason: Protocol Stop: 05/08/18 21:01 Last Admin: 11/06/17 22:24 Dose: 2 mg Alprazolam (Xanax) 1 mg PO TID PRN; Protocol PRN Reason: Anxiety Stop: 05/07/18 21:49 Aspirin (Aspirin Ec) 81 mg PO DAILY SAL Stop: 05/08/18 09:01 Last Admin: 11/07/17 08:12 Dose: 81 mg Atorvastatin Calcium (Lipitor) 80 mg PO HS SAL Stop: 05/08/18 21:01 Last Admin: 11/06/17 22:23 Dose: 80 mg Budesonide/Formoterol Fumarate (Symbicort) 2 puff IH BIDR SAL PRN Reason: Protocol Stop: 05/07/18 22:01 Last Admin: 11/07/17 10:47 Dose: 2 puff Bumetanide (Bumex) 0.5 mg PO DAILY SAL Stop: 05/08/18 09:01 Last Admin: 11/07/17 08:11 Dose: 0.5 mg Dextrose/Water (Dextrose 50% (Syg)) 25 ml IVP AD PRN PRN Reason: Hypoglycemia Stop: 05/07/18 22:16 Enoxaparin Sodium (Lovenox) 40 mg SQ 0600 SAL PRN Reason: Protocol Stop: 05/08/18 06:01 Last Admin: 11/07/17 08:12 Dose: 40 mg Glucagon (Glucagen) 1 mg IM ONCE PRN PRN Reason: Hypoglycemia Stop: 05/07/18 22:16 Glucose (Gluctose) 15 gm PO ONCE PRN PRN Reason: Hypoglycemia Stop: 05/07/18 22:16 Last Admin: 11/06/17 06:24 Dose: 15 gm Glucose (Gluctose) 30 gm PO ONCE PRN PRN Reason: Hypoglycemia Stop: 05/07/18 22:16 Dextrose (Dextrose 5%) 1,000 mls @ 100 mls/hr IVC .Q10H PRN PRN Reason: HYPOGLYCEMIA Stop: 05/07/18 22:16 Insulin Detemir (Levemir) 22 unit 0.15 unit/kg (22 unit) SQ HS SAL Stop: 05/07/18 22:16 Last Admin: 11/06/17 23:18 Dose: Not Given Insulin Human Lispro (Humalog) 0 units SQ Q6HR SAL PRN Reason: Protocol Stop: 05/08/18 00:01 Last Admin: 11/07/17 11:56 Dose: Not Given Levothyroxine Sodium (Synthroid) 75 mcg PO 0630 [facility] Stop: 05/08/18 06:31 Last Admin: 11/07/17 08:12 Dose: 75 mcg Naloxone HCl (Narcan) 0.4 mg IVP Q2MIN PRN PRN Reason: SEE COMMENTS Stop: 05/07/18 21:48 Oxycodone/Acetaminophen (Percocet 10/325) 1 each PO QID PRN PRN Reason: Pain Stop: 05/08/18 09:01 Last Admin: 11/06/17 02:00 Dose: 1 each - Imaging and Cardiology Stress Test: report reviewed Echo: report reviewed - EKG Interpretation EKG results cardiology: personally reviewed (sinus tach, HR 106), other (12 hr tele AVG HR 75, SR, no significant pauses or arrhythmias) Consult Discharge Plan - Plan Referrals: Chapo Lange DO [Partnered Physician] - 11/20/17 9:15 am Mahogany Boyd CNP [Advanced Practice Nurse] - 11/22/17 9:15 am
[2017-11-07] MEDS ORDERED: 0.9 % Sodium Chloride 1,000 ML ONE ×2 (14:40→16:52)
[2017-11-07] MEDS ORDERED: Heparin 1,000 UNITS/500 mL 500 ML ONE (14:40)
[2017-11-07] MEDS ORDERED: Verapamil 5 MG/2 ML VIAL ONE ×2 (14:41→16:52)
[2017-11-07] MEDS ORDERED: ISOVUE-370 200 ML INFUS..BTL IV ONE (14:41)
[2017-11-07] MEDS ORDERED: *HR* Heparin 10,000 UNIT/10 ML VIAL ONE (14:41)
[2017-11-07] MEDS ORDERED: Nitroglycerin 1,000 MCG/10 ML VIAL IV ONE (14:42)
--- NOTE | 2017-11-07 14:51 | Pre-Sedation Evaluation ---
Pre-sedation evaluation - Pre-sedation checklist Date of procedure: 11/07/17 Procedure: [facility] Recent Vitals: Last Vital Signs Temp 98.0 F 11/07/17 11:26 Pulse 83 11/07/17 11:26 Resp 16 11/07/17 11:26 BP 171/83 11/07/17 11:26 Pulse Ox 96 11/07/17 11:26 H&P (including ROS) documented in medical record: Yes Previous reaction to sedatives/anesthetics: No Dietary Status: NPO after Midnight Airway Assessment: Patient can open mouth completely, TMJ function normal ASA Classification *see protocol: CLASS II-Mild systemic disease Plan of Care: Pt appropriate candidate for procedure/moderate/conscious sedation , Risks/benefits of procedure/sedation discussed w/ patient/family
--- NOTE | 2017-11-07 16:33 | Internal Med Progress Note ---
Date of Encounter: 11/07/17 Time of Encounter: 14:30 - Assessment and plan (1) Chest pain Current Visit: Yes Status: Acute Assessment and plan: Intermittent, progressive. Serial troponins negative, EKG with . TTE with EF 55%, mild diastolic dysfunction, no wall motion abnormalities. Nuclear stress test with medium size, moderate intensity perfusion defect concerning for reversible ischemia. Cardiology consult and complaining left heart catheterization 11/07. Cont ASA, statin, BB Qualifiers: Chest pain type: unspecified Qualified Code(s): R07.9 - Chest pain, unspecified (2) Hyperkalemia Current Visit: Yes Status: Acute Assessment and plan: Likely due to CARLEY inhibitor and potassium supplements. Hold these medications for now. K normalized with Kayexalate. Monitor repeat CMP. Continue telemetry monitoring. (3) COPD (chronic obstructive pulmonary disease) Current Visit: Yes Status: Chronic Assessment and plan: Not in acute exacerbation. Recently completed steroid taper. Continue when necessary bronchodilators nebulization, supplemental oxygen, inhaled corticosteroids. Qualifiers: COPD type: chronic bronchitis Chronic bronchitis type: simple Qualified Code(s): J41.0 - Simple chronic bronchitis (4) Diabetes mellitus Current Visit: Yes Status: Chronic Assessment and plan: per hx. Hgb A1c 7.8%. Uses insulin pump at home. Hold home insulin pump, SSI. Monitor blood sugar and titrate PRN Qualifiers: Diabetes mellitus type: type 2 Diabetes mellitus detention insulin use: without termite control technician use Diabetes mellitus complication status: with hyperglycemia Qualified Code(s): E11.65 - Type 2 diabetes mellitus with hyperglycemia (5) Essential hypertension Current Visit: Yes Status: Chronic Assessment and plan: per hx. BP variable but overall controlled. Continue home BP medication. Monitor BP and titrate PRN (6) Obstructive sleep apnea Current Visit: Yes Status: Chronic Assessment and plan: Non-compliant with BiPAP due to "pressure being too high"; encouraged to be compliant and to f/up with Pulmonology (7) DVT prophylaxis Current Visit: Yes Status: Acute Assessment and plan: lovenox - Subjective Interval history: Seen and examined at bedside. Sitting up in chair. He has no complaints besides being anxious for [facility]. No chest pain or shortness of breath - Constitutional Vitals: Temp Pulse Resp BP Pulse Ox 98 F 87 16 135/80 96 11/07/17 15:26 11/07/17 15:26 11/07/17 15:26 11/07/17 15:26 11/07/17 15:26 General appearance: Present: A&O X 3, morbidly obese, answers questions appropriately - Head Head exam: Present: atraumatic, normocephalic - Eye Eye exam: Present: PERRL, conjuntiva pink, sclera anicteric Pupils: Present: PERRL - Neck Neck exam general surgery: Present: supple, trachea midline. Absent: lymphadenopathy - Respiratory Respiratory exam: Present: CTAB. Absent: accessory muscle use, rales, rhonchi, wheezes - Cardiovascular Cardiovascular exam: Present: RRR, +S1, +S2. Absent: diastolic murmur, gallop, rubs, systolic murmur - GI/Abdominal GI/Abdominal exam: Present: normal bowel sounds, soft, no peritoneal signs. Absent: distended, tenderness - Extremities Exam Extremities exam: Present: warm, radial pulses palpable and symmetrical. Absent : calf tenderness, cyanotic, pedal edema - Neurological Exam Neurological exam: Present: CN II-XII intact, oriented X3, no focal deficits. Absent: pronater drift, facial droop, speech deficit - Skin Skin exam: Present: dry, intact Internal Medicine: Result - Labs CBC & Chem 7: 11/07/17 04:24 11/07/17 04:24 Labs: Short CBC 11/07/17 Range/Units 04:24 WBC 10.9 (4.3-11.1) K/mcL Hgb 14.7 (12.9-16.9) g/dL Hct 44.7 (37.5-50.1) % Plt Count 239 (140-400) K/mcL BMP 11/07/17 04:24 Sodium 136 Potassium 3.6 Chloride 97 L Carbon Dioxide 30 H BUN 22 Creatinine 0.84 Glucose 71 Calcium 9.2 - ABG Interpretation ABG results: PT/INR, D-dimer PT 11.5 Seconds (9.4-12.1) 11/05/17 20:12 D-Dimer 238 ng/mLFEU (0-500) 11/05/17 18:51 - Impressions Impressions Echocardiogram 11/06/17 16:50 Impressions: LVEF 55-60%. Definity contrast was used. Mild left ventricular diastolic dysfunction. Normal right ventricular structure and function. Sclerotic aortic valve. Lack of TR signal to estimate RVSP. Left Ventricular Wall Motion: Rest Echo Findings All wall segments showed normal motion. Findings: Study Quality * Technically sub-optimal due to body habitus. ECG Findings * Normal sinus rhythm. Left Ventricle * LVEF 55-60%. * Mild left ventricular diastolic dysfunction. * There is no LV thrombus. * Definity echo contrast was used. Right Ventricle * Normal right ventricular structure and function. Left Atrium * Normal left atrial size. Right Atrium * Normal right atrial size. Mitral Valve * Normal mitral valve structure. * No mitral stenosis. * No mitral regurgitation. Aortic Valve * No aortic regurgitation. * Leaflet morphology not well visualized. * No aortic stenosis. * Sclerotic aortic valve. Tricuspid Valve * Tricuspid valve not well visualized. * No tricuspid regurgitation. Pulmonic Valve * Pulmonic valve is not well visualized. * No pulmonic stenosis. * No pulmonic regurgitation. Pulmonary Artery * Pulmonary artery not well visualized. Aorta * Normally sized aortic root. Pericardium * There is no pericardial effusion present. Interatrial Septum * No evidence of PFO by color Doppler. IVC * The IVC is not well evaluated. Consult Discharge Plan - Plan Referrals: Chapo Lange DO [Partnered Physician] - 11/20/17 9:15 am Mahogany Boyd CNP [Advanced Practice Nurse] - 11/22/17 9:15 am
[2017-11-07] MEDS ORDERED: *HR* Midazolam HCl 2 MG/2 ML VIAL ONE ×2 (16:51→17:43)
[2017-11-07] MEDS ORDERED: *HR* FentaNYL (PF) 100 MCG/2 ML VIAL ONE (16:52)
--- NOTE | 2017-11-07 18:02 | Event Note ---
Date of Encounter: 11/07/17 Time of Encounter: 18:00 - Cardiology Event Note Minimal coronary disease. EFnormal. Acceptable to DC home this evening.
--- NOTE | 2017-11-07 18:07 | Invasive Diagnostic Lab Proc ---
Name: Cesar Shaver Date of Study: 11/07/2017 Date: 1955 Ht: 70.9in Medical Record#: [id number] Age: 62 Wt: 321.87lb Gender: Male BSA: 2.58 Order #: [id number] BMI: 45.06 Physicians Procedure Physician: Ty Patel MD, [facility] Referring MD: Latrell Smith MD Referring MD: Staff Name Position Time In Vipin Blackwell RN Sour Bleaching Pleater 05:29 PM Vale Adamson RN Sour Bleaching Pleater 05:29 PM Pau Ospina RN Monitor 05:29 PM Brett Irene RT (R) Scrub 05:29 PM Melly Dey RT (R) 05:59 PM Indications Indication Abnormal Test - Stress Procedures Performed Procedure L HRT ARTERY/VENTRICLE ANGIO Pre-Procedure Checklist Informed consent is complete signed and on chart. H&P is on chart. ID band is on and ID verified with patient. Patient NPO for procedure The procedure was described for the patient and questions were answered. Blood Pressure: 135/80 ECG is on chart. Plan of Care Patient will tolerate the procedure without complications. Adequate level of comfort will be maintained. Hemodynamics will remain stable Patient will recover from procedure without complications. Respiratory function will be maintained. Cardiac rhythm will remain stable. Patient temperature will be maintained. Patient and/or family have verbalized understanding of the procedure. Patient Education Chief Complaint/Reason for Test: Cardiac Cath Developmental Category: Adult (18-64 years) Developmentally Appropriate for Age: Yes Learning Barriers: None Education Needs: Procedure Education Method: Verbal Information Taught: Cardiac Cath Educational Evaluation: Able to repeat information Intravenous Access Time IV Size Location DC'd Fluid/Drip Rate Units RN 04:50 PM 20g 1 08/16" Patent On Arrival Rt Antecubital Vipin Blackwell RN Allergies venom-honey bee Bee Venom bee venom (honey bee) metformin Vital Signs Time BP (mmHg) HR (bpm) O2 Sat. RR (bpm) LOC 04:52 PM 135 / 80 87 96 % 16 5 = Fully awake and oriented or at pre-proc level 05:30 PM / % 5 = Fully awake and oriented or at pre-proc level 05:30 PM / % 5 = Fully awake and oriented or at pre-proc level 05:32 PM 141 / 92 90 97 % 10 05:37 PM 142 / 90 87 96 % 18 05:42 PM 144 / 87 86 96 % 17 05:46 PM 122 / 82 100 94 % 21 05:51 PM 135 / 82 94 94 % 21 Procedural Medications Time Medication Dose Units Method Given By 05:29 PM Oxygen 2 L/min nasal cannula Vipin Blackwell RN 05:30 PM Versed 2 mg Intravenous Vipin Blackwell RN 05:30 PM Fentanyl 50 mcg Intravenous Vipin Blackwell RN 05:43 PM Lidocaine 2% 0.5 ml Subcutaneous Ty Patel MD, [facility] 05:43 PM Versed 1 mg Intravenous Vipin Blackwell RN 05:44 PM Fentanyl 25 mcg Intravenous Vipin Blackwell RN 05:44 PM Heparin 4000 units Nitroglycerin 200 mcg Verapamil 2.5 mg Intraarterial Ty Patel MD, [facility] ASA Classification: CLASS II- Mild systemic disease (i.e. well-controlled diabetes, hypertension, asthma, cigarette smoking) Ritchie Score Preprocedure Postprocedure Activity 2- Moves 4 extremities sustained head lift Activity 2- Moves 4 extremities sustained head lift Circulation 2- SBP +/= 20 points of pre-anesthetic level Circulation 2- SBP +/= 20 points of pre-anesthetic level Consciousness 2- Awake and alert oriented x 3 Consciousness 2- Awake and alert oriented x 3 O2 Saturation 2- Able to maintain O2 satruation of 92% on room air O2 Saturation 2- Able to maintain O2 satruation of 92% on room air Respiratory 2- Able to deep breathe and cough well Respiratory 2- Able to deep breathe and cough well Total Score 10 Total Score 10 Contrast Agent: Isovue Diagnostic Contrast: 90 ml Total Contrast: 90 ml Fluoro Dose: 423 mGy Procedure Log Time Note Enter By 05:23 PM Pt arrived to clinical laboratory manager 2 at 17:23 [facility] 05:23 PM Physicchasity paged/called 17:23. tsoummers 05:23 PM Physicchasity responded and notified patient is ready 17:23 mmers 05:23 PM Physician arrived 17:23 mm 05:23 PM Meet and greet completed 05:23 PM Sign in performed according to hospital policy. oumm 05:23 PM Procedure start 17:23 mm 05:24 PM CathStat 05:29 PM Vipin Blackwell RN Position: Sour Bleaching Pleater Time in: 17:29 05:29 PM Vale Adamson RN Position: Sour Bleaching Pleater Time in: 17:29 antonio 05:29 PM Pau Ospina RN Position: Monitor Time in: :29 05:29 PM Brett Irene RT (R) Position: Scrub Time in: 17:29 antonio 05:29 PM Patient charges- Angio tray pack, Navilyst 3mm J, Pulse Oximetry and ACIST tubing and transducer antonio 05:29 PM Case Delayed No 05:29 PM Hair removed from procedure site in procedure lab using clippers. Right wrist & Right groin prepped with Chloraprep by Pau Ospina RN, then patient was draped. Skin intact. antonio 05:29 PM ASA Class CLASS II- Mild systemic disease (i.e. well-controlled diabetes, hypertension, asthma, cigarette smoking) hilary 05:30 PM Time: 17:29 Oxygen on at 2 L/min per nasal cannula by Vipin Blackwell RN [email or web address] 05:30 PM Time: 17:30 Versed 2 mg Intravenous Given by Vipin Blackwell RN 05:30 PM Time: 17:30 Fentanyl 50 mcg Intravenous Given by Vipin Blackwell RN 05:30 PM Time: 17:30 Patient comfortable and pain free: Yes antonio 05:30 PM Time: 17:30LOC: 5 = Fully awake and oriented or at pre-proc level antonio 05:30 PM Vitals capture started with the following parameters, Patient=Adult, Interval=5 min, Initial Lsyarsgh=577 mmHg, Deflation Rate=3 mmHg, Cuff placed on Right Arm 05:31 PM Recorded ECG: HR=91 Condition=Condition 1 05:32 PM HR=90 bpm, ZDOX=100/92 mmhg, SpO2=97.0 %, Resp=10 B/min 05:37 PM HR=87 bpm, TSIU=324/90 mmhg, SpO2=96.0 %, Resp=18 B/min 05:39 PM Pressure channel 1 zeroed. 05:42 PM HR=86 bpm, SPOA=917/87 mmhg, SpO2=96.0 %, Resp=17 B/min 05:43 PM Time out performed according to hospital policy 43 PM Time: 17:43 0.5 ml Lidocaine 2% to right radial Subcutaneous Given by Ty Patel MD, [facility] mm 05:44 PM Time: 17:43 Versed 1 mg Intravenous Given by Vipin Blackwell RN 05:44 PM Time: 17:44 Fentanyl 25 mcg Intravenous Given by Vipin Blackwell RN [facility] 05:44 PM Access obtained by percutaneous puncture. 6Fr 10cm Terumo [place] sheath placed in right Radial artery. [id number] oumm 05:44 PM Time: 17:44 Patient given 4,000 units Heparin, 200 mcg Nitroglycerin, and 2.5 mg Verapamil Intraarterial by Ty Patel MD, [facility]. This is given to reduce risk of vessel spasm and thrombosis. tsoumm 05:44 PM 0.035 260cm Navilyst 3mmJ wire [id number] oumm 05:44 PM 5Fr TIG catheter inserted over the wire [facility] mm 05:45 PM tsoumm 05:45 PM wire removed 05:45 PM Time: 17:30LOC: 5 = Fully awake and oriented or at pre-proc level tsoumm 05:45 PM RCA angiography performed in multiple views. tsoumm 05:45 PM Recorded Pressure: Ao, HR=91, Condition=Condition 1 (Aorta) Ao 104/62/80 05:46 PM LCA angiography performed in multiple views. tsoumm 05:46 PM Recorded Pressure: Ao, HR=99, Condition=Condition 1 (Aorta) Ao 114/89/100 05:46 PM HI=625 bpm, QHXX=687/82 mmhg, SpO2=94.0 %, Resp=21 B/min 05:48 PM Catheter removed oumm 05:49 PM 5Fr Pigtail catheter inserted over the wire [facility] 05:49 PM Catheter selectively placed in left ventricle tsoummers 05:49 PM Recorded Pressure: LV, HR=99, Condition=Condition 1 (Left Ventricle) LV 147/-3/12 05:50 PM Bolus angiogram of left Ventricle complete: 10 ml/sec for a total of 30 mls oummers 05:51 PM Recorded Pressure: LV, Ao, HR=95, Condition=Condition 1 (Left Ventricle) LV 150/2/14, (Aorta) Ao 131/79/102 05:51 PM Catheter removed oumm 05:51 PM Wire removed tsoumm 05:51 PM HR=94 bpm, FRNK=489/82 mmhg, SpO2=94.0 %, Resp=21 B/min 05:52 PM Procedure completed at 17:52 tsoummers 05:52 PM Did you address MARISELA flow and Dominance? Yes tsoummers 05:52 PM Sign out completed: Radiation Dose 90 mGy Fluoro Time: 1.3 Isovue 370 - 200ml contrast 90 ml given by Ty Patel MD, [facility]. Complications: NoneCardiac Rehab Consult needed: NoConfirmed administered medications: Yes tsoumm 05:52 PM Isovue 370 - 200ml,1 Bottle(s) used. tsoummers 05:53 PM Arterial sheath pulled, Vasc Band closure device used and was Successful S/N. tsoummers 05:53 PM 14 ml air in Vasc Band. tsoummers 05:53 PM Estimated Blood Loss: minimal tsoummers 05:53 PM Post ECG NSR tsoummers 05:53 PM Post Blood Pressure 135/82 tsoummers 05:53 PM 17:53 Post Pulses Rt Radial 1+ tsoummers 05:53 PM Information taught Cardiac Cath tsoumm 05:53 PM Education needs Procedure, Plan of Care, and Responsibilities of Patient in Care tsoummers 05:53 PM Learning barriers :None tsoummers 05:53 PM Education Methods Verbal tsoumm 05:53 PM Education evaluation Able to repeat information tsoumm 05:53 PM Site status No bleeding/hematoma - Rt Wrist as reported by Brett Irene RT (R) at 17:53 tsoummers 05:53 PM Plavix, Effient or Brilinta given No tsoummers 05:54 PM Complications: None tsoummers 05:54 PM Fluoro Time: 1.3 tsoummers 05:54 PM Isovue 370 - 200ml contrast 90 ml given by Amanda. tsoummers 05:54 PM Radiation Dose 423.42 mGy tsoummers 05:54 PM Coronary Dominance: right tsoummers 05:54 PM Lesion found in Proximal LAD. Pre Stenosis: 15 Pre MARISELA Flow: tsoummers 05:55 PM Proximal Left Anterior Descending Coronary Artery with 15% stenosis. If graft is supplying this territory, 0 % stenosis. [facility] 05:56 PM Vitals capture stopped. 05:58 PM Family placed in consult room. [facility] 05:58 PM Report given to Vicki MASON Pt taken to 3B Room #11. 17:58 [facility] 05:58 PM [facility]: [facility]58 [facility] 05:59 PM Sites, Melly RT (R) Position: Time in: 17:59 [facility] Complications Complication None Hemodynamics Pressures Site Systolic/A Wave Diastolic/V Wave Mean AO 104 62 80 AO 114 89 100 LV 147 -3 12 LV 150 2 14 AO 131 79 102 Post Procedure Information Blood Pressure: 135/82 mmHg Rhythm: NSR Post procedural instructions were given Closure Device Time Device Success/Fail 11/07/2017 5:54:00 PM Mechanical Compression Successful Site Checks Time Location Status Staff Sheath In? Note 05:53 PM Rt Wrist No bleeding/hematoma Brett Irene RT (R) Pulses Time Site Pre-Procedure Post-Procedure Note 11/07/2017 4:52:00 PM Bilateral radial 2+ 11/07/2017 4:52:00 PM Bilateral DP & PT 2+ 5:53:00 PM Rt Radial 1+ Updated by Pau Ospina RN on 11/07/2017 6:01:53 PM electronically signed on 11/07/2017 6:02:19 PM with status of Final
[2017-11-07] MEDS: *HR* OxyCODONE/APAP 10/325 TABLET PO PRN (19:36)
[2017-11-07] MEDS: ALPRAZolam 1 MG TABLET PO SCH (20:19)
[2017-11-07] MEDS: Insulin DETEMIR 100 UNIT/ML X5UNITS SQ SCH (20:19)
[2017-11-08] MEDS: Insulin LISPRO 300 UNITS/3 ML VIAL SQ SCH ×2 (00:32→06:10)
[2017-11-08 04:50] LABS: Hematocrit 43.5 % (37.5-50.1); Hemoglobin 14.7 g/dL (12.9-16.9); Mean Corpuscular HGB Conc 33.8 g/dL (31.6-35.5); Mean Corpuscular Hemoglobin 30.6 pg (28.0-33.3); Mean Corpuscular Volume 90.4 fL (83.0-100.0); Mean Platelet Volume 10.8 fL (9.4-12.4); Platelet Count 237 K/mcL (140-400); Red Blood Count 4.81 M/mcL (4.19-5.50)
[2017-11-08 05:07] LABS: BUN/Creatinine Ratio 20 (6-26); Blood Urea Nitrogen 18 mg/dL (8-23); Calcium 9.3 mg/dL (8.6-10.3); Carbon Dioxide 30 mEq/L (23-29); Chloride 96 mEq/L (98-107); Glucose 179 mg/dL (70-105); Osmolality,Calculated 284 (280-300); Potassium 3.7 mEq/L (3.5-5.1); Sodium 134 mEq/L (136-145); eGFR For African Americans > 60 (> 60); eGFR For Non-African Americans > 60 (> 60)
[2017-11-08] MEDS: *HR* Enoxaparin 40 MG/0.4 ML SYRINGE SQ SCH (06:11)
[2017-11-08] MEDS: Budesonide/Formoterol 160/4.5 MDI IH SCH (07:49)
[2017-11-08] MEDS: Aspirin Enteric Coated 81 MG Tablet PO SCH (09:19)
[2017-11-08] MEDS: Bumetanide 1 MG TABLET PO SCH (09:19)
[2017-11-08 11:12] VITALS: BP 144/84
--- NOTE | 2017-11-08 13:35 | Discharge Summary ---
Orders not resulted at time of discharge: Pending orders 11/09/17 04:00 BMP [Basic Metabolic Panel] AM 0400 Complete Blood Count w/o Diff [HEME] AM 0400 11/10/17 04:00 BMP [Basic Metabolic Panel] AM 0400 Complete Blood Count w/o Diff [HEME] AM 0400 11/11/17 04:00 BMP [Basic Metabolic Panel] AM 0400 Complete Blood Count w/o Diff [HEME] AM 0400 Date of Encounter: 11/08/17 Time of Encounter: 13:37 - Discharge Diagnosis (1) Chest pain Priority: Primary Status: Acute Comments: intermittent, progressive. Serial troponins negative, EKG with TTE with EF 55% , mild diastolic dysfunction, no wall motion abnormalities. Nuclear stress test with medium size, moderate intensity perfusion defect concerning for reversible ischemia. 11/07/17 [facility] with minimal non-obstructive CAD. Wells score low probability for pulmonary embolism. Encouraged aggressive risk factor modification. Cont home ASA, statin, BB Qualifiers: Chest pain type: unspecified Qualified Code(s): R07.9 - Chest pain, unspecified (2) Hyperkalemia Priority: Primary Status: Acute Comments: likely due to CARLEY inhibitor and potassium supplements. K normalized with Kayexalate. Stopped home supplements. Recommend repeat CMP within 1 week (3) COPD (chronic obstructive pulmonary disease) Priority: Secondary Status: Chronic Comments: per hx with chronic respiratory failure. On oxygen at home. No evidence of exacerbation. 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 Hgb A1c 7.8%. Resume home insulin pump at discharge. Qualifiers: Diabetes mellitus type: type 2 Diabetes mellitus mcc insulin use: without wind up operator use Diabetes mellitus complication status: with hyperglycemia Qualified Code(s): E11.65 - Type 2 diabetes mellitus with hyperglycemia (5) Essential hypertension Priority: Secondary Status: Chronic Comments: per hx. BP variable but overall except above. Continue home BP medication. (6) Obstructive sleep apnea Priority: Secondary Status: Chronic Comments: Non-compliant with BiPAP due to "pressure being too high"; encouraged to be compliant and to f/up with Pulmonology Hospital course: Mr. Shaver is a 62 year old male with PMH NATHALY, diabetes, hypertension and hyperlipidemia who presented to [facility] on 11/05/2017 with complaints of chest pain. He was placed in observation status for ACS rule out. Please see assessment and plan for further details. Discharge discussed with: patient - Time Spent with Patient Total time spent providing and/or coordinating discharge services: - Discharge Medications Home Medications: ALPRAZolam [Xanax 1 MG Tablet] 1 mg PO TID PRN 04/22/15 [History] Albuterol Sulfate [Albuterol Inhaler] 2 puff IH Q4-6H PRN 04/22/15 [History] Ergocalciferol (VITAMIN D2) [Drisdol (50,000 Unit)] 50,000 unit PO TUTH [History] Levothyroxine [Synthroid] 75 mcg PO QAM 04/22/15 [History] Oxycodone HCl/Acetaminophen [Percocet 10-325 mg Tablet] 1 tab PO QID 04/22/15 [ History] Oxygen 2 l NS AD 04/22/15 [History] Empagliflozin [Jardiance] 10 mg PO DAILY 06/25/17 [History] ALPRAZolam [Xanax 1 MG Tablet] 2 mg PO HS 11/05/17 [History] Aspirin Enteric Coated [Aspirin EC] 81 mg PO DAILY 11/05/17 [History] Atorvastatin Calcium [Lipitor] 80 mg PO HS 11/05/17 [History] Budesonide/Formoterol 160/4.5 [Symbicort 160/4.5] 2 puff IH BIDR 11/05/17 [ History] Bumetanide 0.5 mg PO DAILY 11/05/17 [History] Cetirizine HCl [Zyrtec] 10 mg PO DAILY PRN 11/05/17 [History] Lisinopril [Zestril] 40 mg PO DAILY 11/05/17 [History] Sitagliptin Phos/Metformin HCl [Janumet Xr 50-1,000 mg Tablet] 1 each PO BID [History] Subcutaneous Insulin Pump [T:Slim] 1 each MC AD 11/05/17 [History] Allergies/Adverse Reactions: 3 Allergy/AdvReac Type Severity Reaction Status Date / Time venom-honey bee Allergy Unknown SOB, Verified 11/05/17 15:59 [bee venom (honey bee)] swelling metformin AdvReac Unknown Loss of Verified 11/05/17 15:59 bowel control Date of admission: 11/06/17 00:41 Primary care physician: Latrell Smith MD Consults: 11/07/17 11:45 Consult to Cardiology [CONS] Routine Comment: Consulting Provider: Cardiology Yi Reason for Consult: abnormal stress Call Completed: Yes Discharging clinician: Zaira Jimenes Anticipated date of discharge: 11/08/17 - Constitutional Vitals: Temp Pulse Resp BP Pulse Ox 97.9 F 75 16 144/84 94 11/08/17 11:12 11/08/17 11:12 11/08/17 11:12 11/08/17 11:12 11/08/17 11:12 General appearance: Present: A&O X 3, morbidly obese, answers questions appropriately - Head Head exam: Present: atraumatic, normocephalic - Eye Eye exam: Present: PERRL, conjuntiva pink, sclera anicteric Pupils: Present: PERRL - Neck Neck exam general surgery: Present: supple, trachea midline. Absent: lymphadenopathy - Respiratory Respiratory exam: Present: CTAB. Absent: accessory muscle use, rales, rhonchi, wheezes - Cardiovascular Cardiovascular exam: Present: RRR, +S1, +S2. Absent: diastolic murmur, gallop, rubs, systolic murmur - GI/Abdominal GI/Abdominal exam: Present: normal bowel sounds, soft, no peritoneal signs. Absent: distended, tenderness - Extremities Exam Extremities exam: Present: warm, radial pulses palpable and symmetrical. Absent : calf tenderness, cyanotic, pedal edema - Neurological Exam Neurological exam: Present: CN II-XII intact, oriented X3, no focal deficits. Absent: pronater drift, facial droop, speech deficit - Skin Skin exam: Present: dry, intact - Patient Status Disposition: Home, Self-Care Condition: Good Functional capacity at discharge: independent ambulation Overall status at discharge: patient is back to baseline - Discharge Instructions Instructions: Coronary Artery Disease (DC), Diabetes Mellitus Type 2 in Adults (DC), Hypertension (DC), Heart Healthy Diet (DC), Weight Management (DC), Hyperlipidemia (DC) Follow Up With: Chapo Lange DO [Partnered Physician] - 11/20/17 9:15 am Mahogany Boyd CNP [Advanced Practice Nurse] - 11/22/17 9:15 am - Diet and Activity Activity: increase activity as tolerated
== END 2017-11-08 14:15 | disposition home or self-care (01) ==
LOC: EMEROO 15:54 → 2SOUTHHOLD 15:54 → 3BNU 11-06 18:37
PROVIDERS: ADMIT Internal Medicine; ATTEND Internal Medicine